=== PATIENT | male | born 1945 | race Caucasian/White ===

== ENCOUNTER → 2016-11-19 | Day surgery (SDC) | payer BC ==
[~2016-11-19] MED LIST: Lactated Ringers 1,000 ML IV SCH; Propofol 200 MG/20 ML SDV IV ONE
[2016-11-19 11:03] VITALS: BP 119/67
--- NOTE | 2016-11-19 13:02 | OR ---
DATE OF OPERATION: 11/19/2016 PREOPERATIVE DIAGNOSIS: HISTORY OF POLYPS. POSTOPERATIVE DIAGNOSIS: HISTORY OF POLYPS. SURGEON: Mal Moralez MD PROCEDURE: FULL-LENGTH COLONOSCOPY WITH POLYP REMOVAL X1. ANESTHESIA: [employer]ICIAN due to sleep apnea. COMPLICATIONS: None. SPECIMEN: Hyperplastic polyp in rectal vault. FINDINGS: 1. Full-length colonoscopy. 2. Borderline prep. 3. Mild sigmoid diverticulosis. 4. Hyperplastic polyp in rectum. RECOMMENDATIONS: In patient's age he will need follow up scopes on a p.r.n. basis only. INDICATIONS: The patient had a prior colonoscopy in 5 years ago and had tubular adenomas removed. He was recommended to have a 5-year followup. DESCRIPTION OF PROCEDURE: The patient was prepped and draped, placed in the left lateral decubitus position. A lubricated Olympus colonoscope was inserted and easily advanced to the cecum. Direct visualization of the ileocecal valve and appendiceal orifice was accomplished. The bowel prep was adequate. There was a lot of stool present, most of this could be suctioned. There were a few scattered areas that were hard to see, but for the most part a good look was obtained. Upon withdrawal, the cecal pouch, ascending, and transverse colons appeared completely benign. Throughout the left colon, the patient did have scattered diverticula in the mid sigmoid to the rectosigmoid junction, mild in severity. No acute inflammatory changes were seen. No signs of any vascular abnormality, bleeding sites, or signs of colitis. He did have 1 small hyperplastic appearing polyp in the rectal vault. Removed in its entirety with cold forceps biopsy x2. Retroflexion in his rectum showed no perianal lesions. Air was then suctioned. The scope was removed without complication. SHAQ/AVIVA /[id number]
== END ==
LOC: CC.SDS 08:55
PROVIDERS: ATTEND Family Medicine
DX: Z12.11 Encounter for screening for malignant neoplasm of colon (principal); D12.8 Benign neoplasm of rectum; K57.30 Diverticulosis of large intestine without perforation or abscess without bleeding; E78.5 Hyperlipidemia, unspecified; G47.30 Sleep apnea, unspecified; Z79.899 Other long term (current) drug therapy
CPT/HCPCS: 45380; J2704; J7120